=== PATIENT | male | born 1955 | race Hispanic/Latino ===

== ENCOUNTER 2021-10-25 14:29 | Observation (INO) | payer MEDICARE, OTHER ==
[~2021-10-25] VITALS: Ht 177.8 cm; Wt 99.2 kg
[2021-10-25 15:22] LABS: BASOPHILS % (AUTO) 0.8 % (0.0-5.0); EOSINOPHILS % (AUTO) 2.8 % (0.0-8.0); HEMATOCRIT 44.1 % (42-54); LYMPHOCYTES % (AUTO) 34.4 % (21.0-51.0); MEAN CORPUSCULAR HEMOGLOBIN 31.9 pg (27.0-33.0); MEAN CORPUSCULAR HGB CONC 34.5 g/dL (32.0-36.0); MEAN CORPUSCULAR VOLUME 92.5 fL (79-99); MONOCYTES % (AUTO) 8.4 % (3.0-13.0); NEUTROPHILS % (AUTO) 53.3 % (40.0-77.0); PLATELET COUNT (AUTO) 191 K/uL (130-400); RED BLOOD CELL COUNT(AUTO) 4.77 MIL/uL (4.50-6.20); RED CELL DISTRIBUTION WIDTH 11.9 % (11.0-15.5); WHITE BLOOD COUNT (AUTO) 8.9 K/uL (4.8-10.8)
[2021-10-25 15:28] LABS: APPEARANCE,URINE Clear (CLEAR); BILIRUBIN,URINE Negative (NEGATIVE); COLOR,URINE Yellow (YELLOW); GLUCOSE, URINE (UA) Negative (NEGATIVE); KETONES,URINE Negative (NEGATIVE); LEUKOCYTE ESTERASE ,URINE Negative (NEGATIVE); NITRATE,URINE Negative (NEGATIVE); OCCULT BLOOD,URINE Negative (NEGATIVE); PH,URINE 5.5 (5.0-8.0); PROTEIN,URINE Negative (NEGATIVE); UROBILINOGEN,URINE 0.2 mg/dL (0.2-1.0)
[2021-10-25 15:34] LABS: CARBON DIOXIDE 24 mmol/L (21-32); CHLORIDE 106 mmol/L (101-111); GLOMERULAR FILTR. RATE CALC 79 mL/min (>60); GLUCOSE,RANDOM 86 mg/dL (70-105); POTASSIUM 3.9 mmol/L (3.5-5.1); SODIUM SERUM 140 mmol/L (136-145); UREA NITROGEN, BLOOD 12 mg/dL (7-18)
[2021-10-25 15:38] LABS: ACETAMINOPHEN < 1 mcg/mL (10-29); ALANINE AMINOTRANSFERASE 41 U/L (12-78); ALBUMIN 3.3 g/dL (3.5-5.0); ALCOHOL, BLOOD 56 mg/dL (0-10); ASPARTATE AMINOTRANSFERASE 28 U/L (10-37); BILIRUBIN,TOTAL 0.3 mg/dL (0.2-1.0); SALICYLATE 4.8 mg/dL (2.8-20.0); TOTAL PROTEIN, SERUM 6.9 g/dL (6.0-8.3)
[2021-10-25] MEDS ORDERED: 0.9%NACL 1000ML 1,000 ML IV SCH (17:00)
[2021-10-25 18:28] LABS: THYROID STIMULATING HORMONE 1.09 uIU/mL (0.36-3.74)
[2021-10-25 18:51] LABS: AMPHET/METH SCREEN,URINE NEGATIVE (NEGATIVE); BARBITURATE SCREEN, URINE NEGATIVE (NEGATIVE); BENZODIAZEPINES SCREEN,URINE POSITIVE (NEGATIVE); CANNABINOID SCREEN,URINE POSITIVE (NEGATIVE); COCAINE SCREEN,URINE NEGATIVE (NEGATIVE); OPIATE SCREEN,URINE NEGATIVE (NEGATIVE); PHENCYCLIDINE SCREEN,URINE NEGATIVE (NEGATIVE)
[2021-10-25] MEDS ORDERED: PANTOPRAZOLE 40 MG/VIAL IVP ONE (19:00)
[2021-10-25] MEDS ORDERED: ACETAMINOPHEN WITH CODEINE 1 TAB TAB PO PRN ×2 (19:30)
[2021-10-25] MEDS ORDERED: ONDANSETRON 4MG INJ IV PRN (19:30)
[2021-10-25] MEDS ORDERED: HYDRALAZINE 20MG/ML VIAL IV PRN (19:30)
[2021-10-25] MEDS ORDERED: LORAZEPAM 2 MG/ML 1 ML VIAL IM PRN (19:30)
[2021-10-25] MEDS ORDERED: ACETAMINOPHEN 325 MG TAB PO PRN (19:30)
[2021-10-25] MEDS: LACTATED RINGERS 1000ML 1,000 ML IV SCH (20:19)
[2021-10-25] MEDS ORDERED: PANTOPRAZOLE 40 MG/VIAL ONE (20:21)
[2021-10-25] MEDS ORDERED: IOHEXOL 350 MG/ML 100ML INFUS..BTL IV ONE (20:27)
[2021-10-25] MEDS ORDERED: M.V.I. IV [ADULT] 10 ML, FOLIC ACID 1 MG, THIAMINE HCL 100 MG in 0.9%NACL 1000ML 1,000 ML IV SCH (20:50)
[2021-10-25] MEDS ORDERED: GLUCAGON 1MG KIT 1 MG ML IM PRN (22:00)
[2021-10-25] MEDS ORDERED: DEXTROSE 50%-WATER 50 ML DISP.SYRIN IV PRN (22:00)
[2021-10-25 22:13] LABS: CHOLESTEROL 209 mg/dL (<200); HDL CHOLESTEROL 43 mg/dL (29-71); LDL DIRECT 109 mg/dL (0-99); TRIGLYCERIDES 360 mg/dL (30-200)
[2021-10-26] VITALS (9 sets, daily range): BP systolic 146–174; BP diastolic 47–110
[2021-10-26] MEDS: DIPHENHYDRAMINE HCL 25 MG CAPSULE PO PRN ×2 (02:08→21:08)
[2021-10-26] MEDS ORDERED: LORAZEPAM 2 MG/ML 1 ML VIAL IVP PRN (03:30)
[2021-10-26] MEDS: LACTATED RINGERS 1000ML 1,000 ML IV SCH ×2 (05:30→15:30)
[2021-10-26] MEDS: INSULIN HUMULIN R 100 UNIT/ML 3ML SQ SCH ×5 (06:00→21:16)
[2021-10-26 06:22] LABS: BASOPHILS % (AUTO) 0.2 % (0.0-5.0); EOSINOPHILS % (AUTO) 2.3 % (0.0-8.0); HEMATOCRIT 42.2 % (42-54); LYMPHOCYTES % (AUTO) 30.2 % (21.0-51.0); MEAN CORPUSCULAR HEMOGLOBIN 31.7 pg (27.0-33.0); MEAN CORPUSCULAR HGB CONC 34.1 g/dL (32.0-36.0); MONOCYTES % (AUTO) 8.3 % (3.0-13.0); NEUTROPHILS % (AUTO) 58.8 % (40.0-77.0); PLATELET COUNT (AUTO) 176 K/uL (130-400); RED BLOOD CELL COUNT(AUTO) 4.54 MIL/uL (4.50-6.20); RED CELL DISTRIBUTION WIDTH 11.9 % (11.0-15.5); WHITE BLOOD COUNT (AUTO) 8.2 K/uL (4.8-10.8)
[2021-10-26 06:41] LABS: CREATININE 1.2 mg/dL (0.5-1.5)
[2021-10-26 06:46] LABS: BILIRUBIN,TOTAL 0.5 mg/dL (0.2-1.0); MAGNESIUM 1.9 mg/dL (1.80-2.40); TOTAL PROTEIN, SERUM 6.4 g/dL (6.0-8.3)
[2021-10-26] MEDS ORDERED: ENOXAPARIN SODIUM 40 MG/0.4 ML SYRINGE SQ SCH (09:00)
[2021-10-26] MEDS: BACLOFEN 10 MG TABLET PO SCH ×2 (15:55→21:14)
[2021-10-26] MEDS: DEXAMETHASONE 4 MG TAB PO SCH ×2 (15:55→21:14)
[2021-10-26] MEDS ORDERED: ATORVASTATIN 20 MG TABLET PO SCH (21:00)
[2021-10-26] MEDS: GABAPENTIN 300 MG CAPSULE PO SCH (21:08)
[2021-10-26] MEDS ORDERED: GABA600T10 PO (23:21)
[2021-10-26] MEDS ORDERED: BUSP10TA3 PO (23:21)
[2021-10-26] MEDS ORDERED: LISI40TA9 PO (23:21)
[2021-10-26] MEDS ORDERED: ROPI1TAB13 PO (23:21)
[2021-10-26] MEDS ORDERED: ATOR10 PO (23:21)
[2021-10-26] MEDS ORDERED: METO25TA6 PO (23:21)
[2021-10-26] MEDS ORDERED: SERT-440 PO (23:21)
[2021-10-26] MEDS ORDERED: ASPI-1443 PO (23:21)
[2021-10-27 03:30] VITALS: BP 122/69
[2021-10-27] MEDS: INSULIN HUMULIN R 100 UNIT/ML 3ML SQ SCH ×2 (06:00→11:48)
[2021-10-27] MEDS: LACTATED RINGERS 1000ML 1,000 ML IV SCH ×2 (06:11→11:30)
[2021-10-27] MEDS: DEXAMETHASONE 4 MG TAB PO SCH ×2 (08:56→14:54)
[2021-10-27] MEDS: BACLOFEN 10 MG TABLET PO SCH ×2 (08:56→14:54)
[2021-10-27] MEDS: GABAPENTIN 300 MG CAPSULE PO SCH (08:57)
[2021-10-27] MEDS ORDERED: BACL5TAB PO (15:16)
[2021-10-27] MEDS ORDERED: DEXA2TAB PO (15:16)
[2021-10-27] MEDS ORDERED: ATOR40TA69 PO (15:16)
[2021-10-27] MEDS ORDERED: LISI40TA9 PO (15:16)
[2021-10-27] MEDS ORDERED: BUSPIRONE HCL 5 MG TABLET PO SCH (21:00)
[2021-10-27] MEDS ORDERED: GABAPENTIN 300 MG CAPSULE PO SCH (21:00)
[2021-10-27] MEDS ORDERED: METOPROLOL TARTRATE 25 MG TAB PO SCH (21:00)
[2021-10-27] MEDS ORDERED: ATORVASTATIN 20 MG TABLET PO SCH (21:00)
[2021-10-27] MEDS ORDERED: ROPINIROLE HCL 1 MG TABLET PO SCH (21:00)
[2021-10-28] MEDS ORDERED: LISINOPRIL 40 MG TABLET PO SCH (09:00)
[2021-10-28] MEDS ORDERED: SERTRALINE HCL 50 MG TABLET PO SCH (09:00)
[2021-10-28] MEDS ORDERED: ASPIRIN 81 MG EC TAB PO SCH (09:00)
== END 2021-10-27 17:30 | disposition home or self-care (01) ==
LOC: EDH 14:29 → EDHIP 19:30 → 4AH 10-26 01:13
PROVIDERS: ADMIT Internal Medicine; ATTEND Internal Medicine
DX: R55 Syncope and collapse (principal); S09.90XA Unspecified injury of head, initial encounter; R41.82 Altered mental status, unspecified; K85.90 Acute pancreatitis without necrosis or infection, unspecified; G93.40 Encephalopathy, unspecified; F10.129 Alcohol abuse with intoxication, unspecified; I10 Essential (primary) hypertension; E11.9 Type 2 diabetes mellitus without complications; E78.5 Hyperlipidemia, unspecified; F12.90 Cannabis use, unspecified, uncomplicated; F43.10 Post-traumatic stress disorder, unspecified; K57.30 Diverticulosis of large intestine without perforation or abscess without bleeding; G25.81 Restless legs syndrome; M54.31 Sciatica, right side; I49.3 Ventricular premature depolarization; R29.6 Repeated falls; Z66 Do not resuscitate; Z87.891 Personal history of nicotine dependence; Z96.652 Presence of left artificial knee joint; Z90.49 Acquired absence of other specified parts of digestive tract; Z79.899 Other long term (current) drug therapy; Z98.890 Other specified postprocedural states; W18.30XA Fall on same level, unspecified, initial encounter; Y92.89 Other specified places as the place of occurrence of the external cause; Y93.89 Activity, other specified; Y99.8 Other external cause status
CPT/HCPCS: 36415 ×2; 70450; 70551; 71045; 72125; 74177; 80053 ×2; 80061; 80305; 81003; 82140; 82948 ×6; 83690; 83735; 84443; 84484; 85025 ×2; 93005; 93306; 93356; 93880; 96361; 96365; 96366 ×2; 96372; 96375 ×2; 97161; 99285; C9113; G0378 ×43; G0481; J2060 ×2; J3411; J3490; J7030; J7120 ×2; J8540 ×4; Q0163 ×2; Q9967